=== PATIENT | female | born 1995 | race Caucasian/White ===

== ENCOUNTER 2020-11-03 08:00 | Outpatient (CLI) | payer OTHER ==
[2020-11-03 18:57] LABS: MUDS CUTOFF CONCENTRATIONS CUTOFF CONC BELOW:
[2020-11-03 20:25] LABS: BILIRUBIN,URINE NEGATIVE (NEGATIVE); GLUCOSE, URINE (UA) NEGATIVE (NEGATIVE); KETONES,URINE (UA) NEGATIVE (NEGATIVE); LEUKOCYTE ESTERASE, URINE NEGATIVE (NEGATIVE); NITRITE,URINE NEGATIVE (NEGATIVE); OCCULT BLOOD,URINE NEGATIVE (NEGATIVE); PROTEIN,URINE NEGATIVE (NEGATIVE); UROBILINOGEN,URINE 0.2 (NORMAL) E.U./dL (NORMAL)
[2020-11-03 20:43] LABS: BACTERIA,URINE Moderate /HPF (None Seen); CLARITY,URINE CLOUDY (CLEAR); RBC,URINE 0-5 /HPF (0-5); SQUAMOUS EPITHELIAL CELL,UR MANY Squamous (<= Few); WBC,URINE 0-3 /HPF (0-5)
[2020-11-03 20:44] LABS: AMORPHOUS SEDIMENT,UR Marked /LPF
[2020-11-03 20:50] LABS: AMPHETAMINE SCREEN,URINE NEGATIVE (NEGATIVE); BENZODIAZEPINES SCREEN, URINE NEGATIVE (NEGATIVE); COCAINE SCREEN URINE NEGATIVE (NEGATIVE); METHADONE SCREEN, URINE NEGATIVE (NEGATIVE); METHAMPHETAMINES SCREEN, URINE NEGATIVE (NEGATIVE); OPIATE SCREEN, URINE NEGATIVE (NEGATIVE); THC CANNABINOID SCREEN, URINE NEGATIVE (NEGATIVE); TRICYCLIC ANTIDEPRESSANT,URINE NEGATIVE (NEGATIVE)
[2020-11-03 20:51] LABS: BARBITURATE SCREEN,UR NEGATIVE (NEGATIVE); OXYCODONE SCREEN, URINE NEGATIVE (NEGATIVE); PROPOXYPHENE SCREEN, URINE NEGATIVE (NEGATIVE)
== END 2020-11-03 23:59 | disposition home or self-care (01) ==
LOC: LAB.WC 08:00
PROVIDERS: ATTEND Advanced Practice Midwife
DX: Z34.80 Encounter for supervision of other normal pregnancy, unspecified trimester (principal)
CPT/HCPCS: 80306; 81001; 87086

== ENCOUNTER 2020-11-12 12:32 | Outpatient (CLI) | payer OTHER ==
--- NOTE | 2020-11-12 14:14 | Ultrasound Report ---
PROCEDURE: OB 14+ Weeks INDICATIONS: SUPERVISION OF NORMAL OUTSIDE/PRIOR DATING DATA: Last menstrual period (LMP): 07/12/2020. LMP-based estimated date of delivery (GIOVANY): 04/18/2021. First dating scan (date and location): 11/12/2020. Estimated date of delivery (GIOVANY) from first dating scan: 04/13/2021. The below data below was generated using the ultrasound derived GIOVANY of 04/13/2021 TECHNIQUE: Real-time scanning was performed of the fetus, with image documentation and biometric measurements. Endovaginal scannin indicated COMPARISON: None. FINDINGS: General: A single living intrauterine gestation is present. Presentation: Vertex Placenta: Placental position is anterior, without previa. Amniotic fluid index: 11.8 cm, normal for gestational age. Largest pocket measures 3.75 cm. heart rate: 171 beats per minute. Maternal cervical canal: 5.3 cm long; normal length is 2.5 cm or more. biometrics: Biparietal diameter: 4.2 cm, 18 weeks, 5 days Head circumference: 15.4 cm, 18 weeks 2 days. Abdominal circumference: 12.3 cm, 18 weeks, 0 day Femur length: 2.7 cm, 18 weeks, 1 day Estimated gestational age from initial scan: not applicable. Composite gestational age from present scan: 18 weeks, 2 days Estimated weight and percentile: 2246 g, 78%. Measurement variability for biometric dating: +/- 10 days from 12-20 weeks gestation, +/- 2 weeks fro m 20-30 weeks gestation, +/- 3 weeks for 30 weeks gestation or later. chest, stomach, bilateral kidneys and urinary bladder are visualized and are within normal limi ts. IMPRESSION: 1. Single live intrauterine with fetus in cephalic presentation. heart rate is 171 bp m. EDDIE was 11.8 cm in size which is at approximately 40-50%. 2. Estimated gestational age is 18 weeks, 2 days. Estimated weight is at 78th percentile. Reviewed by: Erwin Solis MD on 11/12/2020 2:13 PM PDT Approved by: Erwin Solis MD on 11/12/2020 2:13 PM PDT Station ID: [id number]
== END 2020-11-12 12:33 | disposition home or self-care (01) ==
LOC: DI 12:32
PROVIDERS: ATTEND Advanced Practice Midwife
DX: Z34.82 Encounter for supervision of other normal pregnancy, second trimester (principal)

== ENCOUNTER 2020-11-30 17:53 | Outpatient (CLI) | payer OTHER ==
--- NOTE | 2020-12-01 12:58 | Ultrasound Report ---
PROCEDURE: OB Detailed Eval INDICATIONS: SUPERVISION OF NORMAL OUTSIDE/PRIOR DATING DATA: Last menstrual period (LMP): 07/12/20. LMP-based estimated date of delivery (GIOVANY): 04/18/21. First dating scan (date and location): 11/12/20. Estimated date of delivery (GIOVANY) from first dating scan: 04/13/21. The below data below was generated using the ultrasound GIOVANY of 04/13/21 TECHNIQUE: Real-time scanning was performed of the fetus, with image documentation and biometric measurements. COMPARISON: OB ultrasound 11/12/20 FINDINGS: General: A single living intrauterine gestation is present. Presentation: Variable Placenta: Placental position is anterior/fundal, without previa. Amniotic fluid index: 15.7 cm, within normal limits for gestational age. Largest pocket 5.6 cm heart rate: 144 beats per minute. Maternal cervical canal: 4.9 cm long; normal length is 2.5 cm or more. biometrics: Biparietal diameter: 5.1 cm 21 weeks 3 days Head circumference: 18.2 cm 20 weeks 5 days Abdominal circumference: 16 cm 21 weeks 1 day Femur length: 3.5 cm 20 weeks 6 days Estimated gestational age from initial scan: 20 weeks 6 days Composite gestational age from present scan: 20 weeks 4 days Estimated weight and percentile: 390 grams 52nd percentile Measurement variability in biometric dating: +/- 10 days from 12-20 weeks gestation, +/- 2 weeks from 20-30 weeks gestation, +/- 3 weeks at 30 weeks gestation or later. Anatomic survey: Neuro: Ventricles are normal at less than 10 mm. Cisterna magna is normal at 3-11 mm. Cerebellum i s normal in size and morphology. Nuchal skin fold: Normal at less than 6 mm between 14 and 20 weeks gestational age. Face: Nose and lips, facial profile are normal. Spine: No evidence for spina bifida. Heart: 4-chambered heart is present, with normal ventricular outflow tracts. Diaphragm: Diaphragm is intact. Stomach: Left-sided stomach is present. Kidneys: No hydronephrosis. Normal is less than 5 mm in 2nd trimester, less than 7 mm in 3rd trimester. Cord: 3 vessel cord has orthotopic insertion. Bladder: Normal in size. Extremities: All 4 extremities are visualized. IMPRESSION: 1. Single live intrauterine with appropriate interval growth. Reviewed by: Della Dejesus MD on 12/01/2020 12:57 PM PDT Approved by: Della Dejesus MD on 12/01/2020 12:57 PM PDT Station ID: [id number]
== END 2020-11-30 17:54 | disposition home or self-care (01) ==
LOC: DI 17:53
PROVIDERS: ATTEND Nurse Practitioner Obstetrics & Gynecology
DX: Z34.80 Encounter for supervision of other normal pregnancy, unspecified trimester (principal); Z36.89 Encounter for other specified antenatal screening

== ENCOUNTER 2020-12-10 09:02 | Outpatient (CLI) | payer OTHER ==
[2020-12-10 09:29] LABS: BASOPHILS % (AUTO) 0.3 %; EOSINOPHILS # (AUTO) 0.1 10^3/uL (0.0-0.7); EOSINOPHILS % (AUTO) 0.7 %; HCT - HEMATOCRIT 34.8 % (37.0-47.0); HGB - HEMOGLOBIN 11.2 g/dL (12.0-16.0); LYMPHOCYTES # (AUTO) 2.2 10^3/uL (1.5-3.5); LYMPHOCYTES % (AUTO) 23.3 %; MEAN CORPUSCULAR HEMOGLOBIN 25.3 pg (27.0-31.0); MEAN CORPUSCULAR HGB CONC 32.2 g/dL (32.0-36.0); MEAN CORPUSCULAR VOLUME 78.7 fL (81.0-99.0); MEAN PLATELET VOLUME 9.8 fL (7.9-10.8); MONOCYTES # (AUTO) 0.7 10^3/uL (0.0-1.0); MONOCYTES % (AUTO) 7.7 %; NEUTROPHILS # (AUTO) 6.4 10^3/uL (1.5-6.6); NEUTROPHILS % (AUTO) 67.7 %; PLT - PLATELET COUNT 230 10^3/uL (130-450); RED BLOOD COUNT 4.42 10^6/uL (4.20-5.40); RED CELL DISTRIBUTION WIDTH 14.6 % (12.0-15.0); WHITE BLOOD COUNT 9.5 x10^3/uL (4.8-10.8)
[2020-12-11 12:33] LABS: HEPATITIS B SURFACE ANTIGEN NON-REACTIVE (NON-REACTIVE); HEPATITIS C ANTIBODY NON-REACTIVE (NON-REACTIVE)
[2020-12-11 15:41] LABS: HIV AG/AB 4TH GEN NON-REACTIVE (NON-REACTIVE)
== END 2020-12-10 09:03 | disposition home or self-care (01) ==
LOC: LAB 09:02
PROVIDERS: ATTEND Radiology Diagnostic Radiology
DX: Z36.89 Encounter for other specified antenatal screening (principal)
CPT/HCPCS: 36415; 85025; 86592; 86762; 86787; 86803; 86850; 86900; 86901; 87340; 87389

== ENCOUNTER 2021-02-12 12:36 | Outpatient (CLI) | payer OTHER ==
[2021-02-12 14:05] LABS: HCT - HEMATOCRIT 31.9 % (37.0-47.0); HGB - HEMOGLOBIN 9.7 g/dL (12.0-16.0); MEAN CORPUSCULAR HEMOGLOBIN 23.6 pg (27.0-31.0); MEAN CORPUSCULAR HGB CONC 30.4 g/dL (32.0-36.0); MEAN CORPUSCULAR VOLUME 77.6 fL (81.0-99.0); MEAN PLATELET VOLUME 9.5 fL (7.9-10.8); RED BLOOD COUNT 4.11 10^6/uL (4.20-5.40); RED CELL DISTRIBUTION WIDTH 15.3 % (12.0-15.0); WHITE BLOOD COUNT 11.5 x10^3/uL (4.8-10.8)
== END 2021-02-12 12:37 | disposition home or self-care (01) ==
LOC: LAB 12:36
PROVIDERS: ATTEND Nurse Practitioner Obstetrics & Gynecology
DX: Z34.80 Encounter for supervision of other normal pregnancy, unspecified trimester (principal); Z36.89 Encounter for other specified antenatal screening
CPT/HCPCS: 36415; 82950; 85027

== ENCOUNTER 2021-02-20 11:21 | Outpatient (CLI) | payer OTHER ==
[2021-02-20 11:46] VITALS: BP 117/70
[2021-02-20 12:06] LABS: BILIRUBIN,URINE NEGATIVE (NEGATIVE); CLARITY,URINE CLEAR (CLEAR); GLUCOSE, URINE (UA) NEGATIVE (NEGATIVE); KETONES,URINE (UA) >=80 mg/dL (NEGATIVE); LEUKOCYTE ESTERASE, URINE NEGATIVE (NEGATIVE); NITRITE,URINE NEGATIVE (NEGATIVE); OCCULT BLOOD,URINE NEGATIVE (NEGATIVE); PROTEIN,URINE TRACE mg/dL (NEGATIVE); UROBILINOGEN,URINE 1 (NORMAL) E.U./dL (NORMAL)
[2021-02-20 12:18] LABS: AMORPHOUS SEDIMENT,UR Few /LPF; BACTERIA,URINE Few /HPF (None Seen); RBC,URINE None Seen /HPF (0-5); SQUAMOUS EPITHELIAL CELL,UR MANY Squamous (<= Few)
[2021-02-20 13:23] LABS: HCT - HEMATOCRIT 32.2 % (37.0-47.0); HGB - HEMOGLOBIN 9.9 g/dL (12.0-16.0); MEAN CORPUSCULAR HEMOGLOBIN 23.2 pg (27.0-31.0); MEAN CORPUSCULAR HGB CONC 30.7 g/dL (32.0-36.0); MEAN CORPUSCULAR VOLUME 75.4 fL (81.0-99.0); MEAN PLATELET VOLUME 9.9 fL (7.9-10.8); RED BLOOD COUNT 4.27 10^6/uL (4.20-5.40); RED CELL DISTRIBUTION WIDTH 15.9 % (12.0-15.0); WHITE BLOOD COUNT 5.2 x10^3/uL (4.8-10.8)
[2021-02-20 13:45] LABS: ALBUMIN 2.9 g/dL (3.2-5.5); ALBUMIN/GLOBULIN RATIO 0.8 (1.0-2.2); ALKALINE PHOSPHATASE 131 IU/L (42-121); ALT ALANINE AMINOTRANSFERASE 27 IU/L (10-60); AST ASPARTATE AMINOTRANSFERASE 31 IU/L (10-42); BILIRUBIN,TOTAL 0.8 mg/dL (0.2-1.0); BUN - BLOOD UREA NITROGEN < 5 mg/dL (6-20); CARBON DIOXIDE - CO2 19 mmol/L (21-32); CHLORIDE 102 mmol/L (101-111); CREATININE 0.7 mg/dL (0.4-1.0); GFR - MDRD 100 (>89); GLUCOSE 88 mg/dL (70-100); POTASSIUM 3.4 mmol/L (3.5-5.0); SODIUM 133 mmol/L (135-145); TOTAL PROTEIN 6.7 g/dL (6.7-8.2)
--- NOTE | 2021-02-20 14:20 | PROVIDER PROGRESS NOTE ---
- HPI Chief Complaint: Pain, non-labor Current : Current EDU 04/18/21 Gestation 31 Weeks and 6 Days 2 Para 1 Vital Signs Temperature 36.7 C 02/20/21 11:43 Heart Rate 117 H 02/20/21 11:43 Respiratory Rate 20 02/20/21 11:43 Blood Pressure 117/70 02/20/21 11:43 O2 Saturation 96 02/20/21 11:43 Temperature 36.7 C 02/20/21 11:43 Heart Rate 117 H 02/20/21 11:43 Respiratory Rate 20 02/20/21 11:43 Blood Pressure 117/70 02/20/21 11:43 O2 Saturation 96 02/20/21 11:43 - Procedures OB Procedure Performed: NST Diagnosis/Indication for NST: labor - Plan Plan: Pt evaluated face to face Lillian presents to [facility] with c/o abdominal pain. She states the pain has been present x 3 days but most severely since yesterday. She reports it is located in her right lower back and then wraps around the front across to her upper right abdomen and her rib cage. She rates the pain 8/10 on a pain scale. She is concerned that the pain seems to come and go with some consistency and is worried she may be having labor contractions. In addition she is experiencing constant nausea, has had a runny nose and congestion x 5 days and had an elevated temperature of 100 degrees yesterday. She has also been experiencing shortness of breath today. She denies vaginal bleeding or leakage of fluid and reports +FM. She has had normal bowel movements but states she has not eaten anything for the past couple of days. She states she does not want a COVID-19 swab today because she does not believe covid is as bad as everyone is making it out to be. She states her would be very upset with her if she were to get a swab today. We discussed the importance of knowing what is causing her symptoms and reviewed delay in life saving treatments if we do not know she has COVID. We also discussed the importance of quarantine to protect her family and her community members. O: NST performed 02/20/2021 NST read 02/20/2021 NST reactive. FHR baseline 150s, moderate variability, + accels, no decels No contractions appreciated via tocometry Vitals: BP 117/70, T 36.7, HR 117, RR 20; O2 98 Normocephalic, atraumatic, heart RRR w/o M/G/R, lungs CTAB, abdomen gravid, soft, and tender in RUQ w/o rebound pain. Bilateral LE's trace edema. Labs: Hgb 9.9; Hct 32.2 PLT 171 AST 31; ALT 27 Cr 0.7 Na 133; K 3.4 UA negative with exception of >=80 Ketones (H) Complete abdominal ultrasound: Comprehensive report pending; preliminary report WNL. Some mild sludge to gall bladder however no blockage or stone visualized. Pt refused COVID-19 swab/testing course: LMP: 07/12/2020 GIOVANY by LMP:04/18/2021 Initial U/S: @ 18.2wks c/w LMP dating (GIOVANY 04/13/2021) FINAL GIOVANY: 04/18/2021 A pos/Rubella non immune VZV: non immune Genetic testing: declines FAS: WNL. Anterior, fundal placenta, no previa. 3VC. Size c/w dating. EFW 52%tile. Glucola impaired (174); 3 hour GTT pending as pt has not yet completed Influenza: delinced TDAP: declined COVID- declined HSV: denies in self and partner Breast pump Rx provided MOD: Anticipate ; type and cross for 2 units secondary to hx of pp hemorrhage and retained placenta; Ramirez, daughter Baldev (16mo); epidural; pp contraception: pap: collected 12/10/2020 Assessment: 25yo @ 31.6wks gestation by LMP c/w 18.2wk U/S Abdominal pain, RUQ Rhinorrhea Shortness of breath FHR Category I Plan: Encouraged her to obtain a pulse oximeter and present immediately if her O2 drops below 93%. Reviewed warning s/sx and when to present urgently/emergently. Advised quarantine x 14 days. Encouraged her to increase her fluid intake and rest. Pt has emergency contact number. Pt verbalized understanding and agrees to above plan. She denies further questions or concerns at this time. FINAL DIAGNOSIS: Abdominal pain, RUQ Rhinorrhea Shortness of breath
--- NOTE | 2021-02-20 15:19 | Ultrasound Report ---
PROCEDURE: Abdomen Complete INDICATIONS: right upper quadrant abdominal pain TECHNIQUE: Real-time scanning was performed of the abdominal and retroperitoneal organs, with image documentatio n. COMPARISON: None. FINDINGS: Liver: Liver is normal in size and homogeneous in echotexture. Gallbladder: Pulmonary demonstrates sludge. There is a nonmobile focus of increased echogenicity alla uring 4 x 3 x 5 mm. Wall thickness is within normal limits measuring 1.4 mm. Biliary ducts: Intrahepatic bile ducts are non-dilated. Extrahepatic bile duct caliber measures 4.8 mm. Normal is 6-7 mm or less in diameter, or 10 mm or less post-cholecystectomy. Pancreas: Visualized portions of the pancreas are sonographically normal. Spleen: Spleen is normal in size and homogeneous in echotexture. Kidneys: Kidneys are normal in size and echotexture. Right kidney measures 11.8 cm long; left kidne y measures 11.7 cm long. No hydronephrosis or nephrolithiasis. No solid masses. Aorta: Visualized aorta is normal in caliber at less than 3 cm. Iliacs: Proximal common iliac arteries are not visualized. IVC: Intrahepatic inferior vena cava is patent. Miscellaneous: No free abdominal fluid. Intrauterine is identified with heart rate of 187 bpm. IMPRESSION: 1. Gallbladder sludge with adherent stone versus polyp as above. No gallbladder wall thickening. 2. Single live intrauterine . Reviewed by: Della Dejesus MD on 02/20/2021 3:17 PM PDT Approved by: Della Dejesus MD on 02/20/2021 3:17 PM PDT Station ID: [id number]
== END 2021-02-20 15:36 | disposition home or self-care (01) ==
LOC: WFO 11:21 → FBP 11:24 → WFO 15:36
PROVIDERS: ATTEND Nurse Practitioner Obstetrics & Gynecology
DX: O99.891 Other specified diseases and conditions complicating pregnancy (principal); R10.11 Right upper quadrant pain; J34.89 Other specified disorders of nose and nasal sinuses; R06.02 Shortness of breath; Z3A.31 31 weeks gestation of pregnancy; Z53.29 Procedure and treatment not carried out because of patient's decision for other reasons
CPT/HCPCS: 36415; 80053; 81001; 85027; 87086; 99213; 99215

== ENCOUNTER 2021-03-22 19:48 | Outpatient (CLI) | payer OTHER ==
--- NOTE | 2021-03-22 21:24 | Ultrasound Report ---
PROCEDURE: OB F/U or Repeat INDICATIONS: UTERINE SIZE-DATE DISCREPANCY OUTSIDE/PRIOR DATING DATA: Last menstrual period (LMP): 07/12/2020. LMP-based estimated date of delivery (GIOVANY): 04/18/2021. First dating scan (date and location): 11/12/2020. Estimated date of delivery (GIOVANY) from first dating scan: 04/13/2021. The below data below was generated using the ultrasound GIOVANY of 04/13/2021 TECHNIQUE: Real-time scanning was performed of the fetus, with image documentation and biometric measurements. COMPARISON: OB ultrasound 11/30/2020, 11/12/2020, ultrasound abdomen 02/20/2021 FINDINGS: General: A single living intrauterine gestation is present. Presentation: Vertex Placenta: Placental position is anterior, without previa. Amniotic fluid index: 25.2 cm, within normal limits for gestational age. Largest pocket 10.1 cm heart rate: 153 beats per minute. Maternal cervical canal: 4.0 cm long; normal length is 2.5 cm or more. biometrics: Biparietal diameter: 9.4 cm 38 weeks 2 days Head circumference: 33.5 cm 38 weeks 3 days Abdominal circumference: 33.5 cm 37 weeks 3 days Femur length: 6.9 cm 35 weeks 2 days Estimated gestational age from initial scan: 36 weeks 6 days Composite gestational age from present scan: 37 weeks 3 days Estimated weight and percentile: 3113 g 62nd percentile Measurement variability in biometric dating: +/- 10 days from 12-20 weeks gestation, +/- 2 weeks from 20-30 weeks gestation, +/- 3 weeks at 30 weeks gestation or more. Other: Not applicable. IMPRESSION: 1. Single live intrauterine . 2. EDDIE and weight are within normal limits. Reviewed by: Della Dejesus MD on 03/22/2021 9:23 PM PDT Approved by: Della Dejesus MD on 03/22/2021 9:23 PM PDT Station ID: [id number]
== END 2021-03-22 19:49 | disposition home or self-care (01) ==
LOC: DI 19:48
PROVIDERS: ATTEND Nurse Practitioner Obstetrics & Gynecology
DX: O26.843 Uterine size-date discrepancy, third trimester (principal); Z3A.37 37 weeks gestation of pregnancy

== ENCOUNTER 2021-04-01 07:00 | Outpatient (CLI) | payer OTHER | END 2021-04-01 23:59 | disposition home or self-care (01) | LOC: LAB 07:00 | PROVIDERS: ATTEND Nurse Practitioner Obstetrics & Gynecology | DX: Z36.85 Encounter for antenatal screening for Streptococcus B (principal) | CPT/HCPCS: 87797 ==

== ENCOUNTER 2021-04-01 10:26 | Outpatient (CLI) | payer OTHER ==
[2021-04-01 10:49] VITALS: BP 107/74
--- NOTE | 2021-04-01 12:16 | PROCEDURE REPORT ---
- HPI Diagnosis/Indication for NST: Polyhydramnios Current EDU 04/19/21 Gestation 37 Weeks and 3 Days 2 Para 1 Vital Signs Temperature 37 C 04/01/21 10:42 Heart Rate 125 H 04/01/21 10:42 Respiratory Rate 18 04/01/21 10:42 Blood Pressure 107/74 04/01/21 10:42 Temperature 37 C 04/01/21 10:54 Heart Rate 125 H 04/01/21 10:54 Respiratory Rate 18 04/01/21 10:54 Blood Pressure 107/74 04/01/21 10:54 O2 Saturation 100 04/01/21 10:54 - NST Procedure NST Procedure Start Date 04/01/21 Start Time 10:41 Vibroacoustic Stimulation Used No Patient States Movement Yes - Results and Plan Plan: Lillian presents to [facility] for NST and BPP with EDDIE secondary to polyhydramnios. She denies questions or concerns today. NST performed 04/01/2021 NST read 04/01/2021 NST reactive. FHR baseline 150s, moderate variability, + accels, no decels No contractions appreciated via tocometry BPP 01/25 EDDIE 15.0 with largest pocket 6.8cm Assessment: 25yo @ 37.5wks gestation Polyhydramnios FHR Category I Plan: Continue routine care with once weekly BPP w/ EDDIE (scheduled next week 04/07) IOL at 39.2wks gestation Pt verbalized understanding and denies further questions or concerns at this time. FINAL DIAGNOSIS: Polyhydramnios complicating
--- NOTE | 2021-04-01 12:28 | Ultrasound Report ---
PROCEDURE: OB Biophysical Profile INDICATIONS: polyhydramnios OUTSIDE/PRIOR DATING DATA: Last menstrual period (LMP): 07/12/2020. LMP-based estimated date of delivery (GIOVANY): 04/18/2021. First dating scan (date and location): 11/12/2020. Estimated date of delivery (GIOVANY) from first dating scan: 04/13/2021. The below data below was generated using the prior study generated GIOVANY of 04/13/2021 TECHNIQUE: Real-time scanning was performed of the fetus, with image documentation and biometric funmilayo surements. Biophysical profile was also obtained. COMPARISON: 03/22/2021, 02/20/2021, 11/30/2020, 11/12/2020. FINDINGS: General: A single living intrauterine gestation is present. Presentation: Vertex Placenta: Placental position is anterior, without previa. Amniotic fluid index: 15.0 cm, which is within normal limits for gestational age. heart rate: 158 beats per minute. Maternal cervical canal: 3.9 cm long; normal length is 2.5 cm or more. biometrics: Biparietal diameter: 9.6 cm, 39 weeks, 1 day. Head circumference: 34.8 cm, 40 weeks, 3 days. Abdominal circumference: 36.05 cm, 30 weeks, 0 day. Femur length: 7.35 cm, 37 weeks, 4 days. Estimated gestational age from initial scan: 38 weeks, 2 days. Composite gestational age from present scan: 39 weeks, 2 days. Estimated weight and percentile: 3785.1 g, 88%. Measurement variability in biometric dating: +/- 10 days from 12-20 weeks gestation, +/- 2 weeks from 20-30 weeks gestation, +/- 3 weeks at 30 weeks gestation or later. Biophysical profile: Tone: 2 points. Movement: 2 points. Respiration: 2 points. Largest pocket of fluid: 2 points. Umbilical artery Doppler: Abdomen, 2.44, mid, 2.09, placenta, 2.20. IMPRESSION: 1. Single live intrauterine with fetus in vertex presentation. heart rate is 158 bpm. Estimated gestational age based on current study is 39 weeks, 2 days. Estimated weight is 3785 g and is at 88%. 2. EDDIE measures 15.0 cm which is within normal limits. Largest pocket measures 6.77 cm. 3. biophysical profile score is 8 out of 8. 4. Normal umbilical artery S/D ratio as above. Reviewed by: Erwin Solis MD on 04/01/2021 12:27 PM PDT Approved by: Erwin Solis MD on 04/01/2021 12:27 PM PDT Station ID: [id number]
== END 2021-04-01 12:10 | disposition home or self-care (01) ==
LOC: WFO 10:26 → FBP 10:30 → WFO 12:10
PROVIDERS: ATTEND Nurse Practitioner Obstetrics & Gynecology
DX: O40.3XX0 Polyhydramnios, third trimester, not applicable or unspecified (principal); Z36.85 Encounter for antenatal screening for Streptococcus B; Z3A.37 37 weeks gestation of pregnancy
CPT/HCPCS: 59025; 87797; 99213

== ENCOUNTER 2021-04-03 00:13 | Outpatient (CLI) | payer OTHER ==
[2021-04-03 00:50] VITALS: BP 110/78
--- NOTE | 2021-04-03 13:21 | PROVIDER PROGRESS NOTE ---
- HPI Chief Complaint: Decreased movement Current : Current EDU 04/18/21 Gestation 37 Weeks and 6 Days 2 Para 1 Vital Signs Temperature 37.2 C 04/03/21 00:17 Heart Rate 96 04/03/21 00:17 Respiratory Rate 18 04/03/21 00:17 Blood Pressure 110/78 04/03/21 00:17 Temperature 37.2 C 04/03/21 00:19 Heart Rate 108 H 04/03/21 00:19 Respiratory Rate 20 04/03/21 00:19 Blood Pressure 110/78 04/03/21 00:19 O2 Saturation - Procedures OB Procedure Performed: NST Diagnosis/Indication for NST: Decreased movement NST Procedure: NST Procedure Start Date 04/03/21 Start Time 00:25 Stop Time 01:00 Vibroacoustic Stimulation Used No Patient States Movement Yes: Has felt FM >15 FMs in 20min - Plan Plan: Lillian presents to [facility] for decreased movement throughout the day today. She denies vaginal bleeding, leakage of fluid or contractions. Upon arrival she states she did begin to feel her baby move and is feeling much better now. NST performed 04/03/2021 NST read 04/03/2021 FHR baseline 150s, moderate variability, + accels, no decels No contractions appreciated via tocometry Assessment: 25yo [id number] @ 37.6wks gestation decreased movement Plan: Pt released home with precautions and reports feeling reassured. Continue routine care. FINAL DIAGNOSIS: Decreased movement, third trimester
== END 2021-04-03 01:30 | disposition home or self-care (01) ==
LOC: WFO 00:13 → FBP 00:14 → WFO 01:30
PROVIDERS: ATTEND Nurse Practitioner Obstetrics & Gynecology
DX: O36.8130 Decreased fetal movements, third trimester, not applicable or unspecified (principal); Z3A.37 37 weeks gestation of pregnancy
CPT/HCPCS: 59025; 99213

== ENCOUNTER 2021-04-07 10:47 | Outpatient (CLI) | payer OTHER ==
[2021-04-07 11:01] VITALS: BP 122/82
--- NOTE | 2021-04-07 13:11 | Ultrasound Report ---
PROCEDURE: OB Biophysical Profile INDICATIONS: Polyhydramnios OUTSIDE/PRIOR DATING DATA: Last menstrual period (LMP): 07/12/2020. LMP-based estimated date of delivery (GIOVANY): 04/18/2021. First dating scan (date and location): 11/12/2020. [place]. Estimated date of delivery (GIOVANY) from first dating scan: 04/13/2021. The below data below was generated using the ultrasound GIOVANY of 04/13/2021 TECHNIQUE: Real-time scanning was performed of the fetus, with image documentation and biometric funmilayo surements. Biophysical profile was also obtained. COMPARISON: None. FINDINGS: General: A single living intrauterine gestation is present. Presentation: Vertex Placenta: Placental position is anterior, without previa. Amniotic fluid index: 16.1 cm, normal for gestational age. heart rate: 148 beats per minute. Maternal cervical canal: Not well seen. Estimated gestational age from initial scan: 39 weeks 1 day. Biophysical profile: Tone: 2 points. Movement: 2 points. Respiration: 2 points. Largest pocket of fluid: 2 points. 6.6 cm. Cord SD ratio: Abdomen 1.79, mid 1.77, placenta 1.70 anatomy: Limited evaluation demonstrates normal chest/diaphragm, stomach/abdomen, bilateral staci al regions and urinary bladder/pelvis. IMPRESSION: 1. Biophysical profile score 8/8 2. EDDIE 16.1 cm. 3. SD ratios within normal limits. Reviewed by: Alin Mandel on 04/07/2021 1:10 PM PDT Approved by: Alin Mandel on 04/07/2021 1:10 PM PDT Station ID: [id number]
--- NOTE | 2021-04-07 13:40 | PROCEDURE REPORT ---
- HPI Diagnosis/Indication for NST: Other Current EDU 04/18/21 Gestation 38 Weeks and 3 Days 2 Para 1 Vital Signs Temperature 36.8 C 04/07/21 10:59 Heart Rate 102 H 04/07/21 10:59 Respiratory Rate 18 04/07/21 10:59 Blood Pressure 122/82 H 04/07/21 10:59 O2 Saturation 100 04/07/21 10:59 Temperature 36.8 C 04/07/21 11:02 Heart Rate 102 H 04/07/21 10:59 Respiratory Rate 18 04/07/21 10:59 Blood Pressure 122/82 H 04/07/21 10:59 O2 Saturation 100 04/07/21 10:59 - NST Procedure NST Procedure Start Date 04/07/21 Start Time 11:00 Stop Time 11:25 Vibroacoustic Stimulation Used No Patient States Movement Yes - Results and Plan Plan: Lillian presents to [facility] for scheduled NST, BPP and EDDIE secondary to polyhydramnios. NST performed 04/07/2021 NST read 04/07/2021 FHR baseline 140, moderate variability, + accels, no decels No contractions appreciated via tocometry BPP 8/8 Pt released home with precautions. FINAL DIAGNOSIS: Polyhydramnios, third trimester
== END 2021-04-07 12:20 | disposition home or self-care (01) ==
LOC: WFO 10:47 → FBP 10:51 → WFO 12:20
PROVIDERS: ATTEND Nurse Practitioner Obstetrics & Gynecology
DX: O40.3XX0 Polyhydramnios, third trimester, not applicable or unspecified (principal); Z3A.38 38 weeks gestation of pregnancy
CPT/HCPCS: 59025

== ENCOUNTER 2021-04-13 07:30 | Inpatient (IN) | payer OTHER ==
[2021-04-13] MEDS ORDERED: OXYTOCIN 10 UNIT/ML VIAL IM PRN (08:18)
[2021-04-13] MEDS ORDERED: CARBOPROST TROMETHAMINE 250 MCG/ML AMP IM PRN (08:18)
[2021-04-13] MEDS ORDERED: OXYTOCIN/SODIUM CHLORIDE 500 ML IV PRN (08:18)
[2021-04-13] MEDS ORDERED: LIDOCAINE-MPF 1% 30 ML VIAL ID PRN (08:18)
[2021-04-13] MEDS ORDERED: SODIUM CHLORIDE FLUSH 0.9% 10 ML SYRINGE IVP PRN (08:18)
[2021-04-13] MEDS ORDERED: miSOPROStoL 200 MCG TABLET BC PRN (08:18)
[2021-04-13] MEDS ORDERED: ONDANSETRON 4 MG/2 ML VIAL IVP PRN ×2 (08:18→20:44)
[2021-04-13] MEDS ORDERED: METHYLERGONOVINE 0.2 MG/ML VIAL IM PRN (08:18)
[2021-04-13] MEDS ORDERED: TRANEXAMIC ACID IN NACL 1,000 MG/100 ML BAG IV PRN (08:18)
[2021-04-13 08:59] LABS: BASOPHILS % (AUTO) 0.3 %; EOSINOPHILS % (AUTO) 0.2 %; HCT - HEMATOCRIT 30.7 % (37.0-47.0); HGB - HEMOGLOBIN 9.3 g/dL (12.0-16.0); LYMPHOCYTES # (AUTO) 2.1 10^3/uL (1.5-3.5); LYMPHOCYTES % (AUTO) 23.6 %; MEAN CORPUSCULAR HEMOGLOBIN 22.7 pg (27.0-31.0); MEAN CORPUSCULAR HGB CONC 30.3 g/dL (32.0-36.0); MEAN CORPUSCULAR VOLUME 74.9 fL (81.0-99.0); MONOCYTES # (AUTO) 0.5 10^3/uL (0.0-1.0); MONOCYTES % (AUTO) 5.2 %; NEUTROPHILS # (AUTO) 6.4 10^3/uL (1.5-6.6); NEUTROPHILS % (AUTO) 70.5 %; PLT - PLATELET COUNT 253 10^3/uL (130-450); RED CELL DISTRIBUTION WIDTH 17.3 % (12.0-15.0)
[2021-04-13] MEDS: miSOPROStoL 100 MCG TABLET BC SCH ×4 (09:10→18:56)
--- NOTE | 2021-04-13 15:12 | PROVIDER PROGRESS NOTE ---
Labor Progress Note - Uterine Monitoring Uterine Monitoring Mode: positive: External toco Contraction Frequency (min/apart): 2-6 Contraction Intensity: positive: Moderate Uterine Resting Tone: positive: Soft - Monitoring Monitor Mode: positive: External ultrasound Heart Rate Baseline: 140 Heart Rate Variability: positive: Moderate (6-25 bmp) Accelerations: positive: Present, 15x15 Decelerations: positive: None Strip Review: positive: Category I - Vaginal Exam Dilation (in cm): 3-4 Effacement (%): 50 Station: -2 Cervical Position: Midposition - Labor Progress Note Labor Progress Note/Additional Text: S: Breathing through contractions. States she is definitely feeling increased pressure with contractions and is noting a change for sure. She feels she is coping well at this time. supportive at the bedside. O: AROM moderate amount of clear fluid at 1458 A: 25yo @ 39.2wks gestation by LMP c/w 18.2wk U/S Polyhydramnios - mild (initially 25 with repeat EDDIE 15) Impaired GTT in - 1 hr 164; 3 hr GTT declined; declined BG monitoring GBS neg P: Continuous monitoring D/c misoprostol now - Expectant management x 4 hours. Consider pitocin for labor augmentation in 4 hours PRN. Encouraged ambulation and position changes. Nitrous oxide PRN. Jacuzzi PRN. Epidural per maternal request. Anticipate . Pt verbalized understanding and agrees to above plan. She denies further questions or concerns at this time.
--- NOTE | 2021-04-13 15:14 | HISTORY & PHYSICAL EXAMINATION ---
Admit History - Visit Reason Visit Reason: Other - : 2 Parity: 1 Premature: 0 Ectopic: 0 : 0 Care: positive: [facility] Risk/History: positive: Other Complications This : positive: Other Smoking Status: Never smoker - Mother's Labs Mother's Blood Type: positive: A Mother's RH: positive: Positive GBS: positive: Group B Step Negative Rubella Status: positive: Immune Meds/Allgy - Allergies Allergies/Adverse Reactions: Allergies Allergy/AdvReac Type Severity Reaction Status Date / Time azithromycin Allergy Rash Verified 04/13/21 09:56 naproxen Allergy Unknown Verified 04/13/21 09:56 Review of Systems - Constitutional Constitutional: denies: Fatigue, Fever, Chills - Eyes Eyes: denies: Blurred vision, Spots in vision, Dipolpia - Cardiovascular Cariovascular: denies: Irregular heart rate, Palpitations, Chest pain - Respiratory Respiratory: denies: Cough, Wheezing, SOB at rest - Gastrointestinal Gastrointestinal: denies: Nausea, Vomiting - Integumentary Integumentary: denies: Rash, Pruritis - Neurological Neurological: denies: Headache Physical - Abdominal Exam Vital Signs: Temp Pulse Resp BP Pulse Ox 36.5 C 04/13/21 08:55 Contraction Frequency (min/apart): intermittent/occasional Contraction Intensity: positive: Mild Uterine Resting Tone: positive: Soft - Monitoring Heart Rate Baseline: 140 Strip Review: positive: Category I - Presentation Presentation: positive: Vertex - Vaginal Exam Membranes: positive: Membranes intact - Speculum Exam Speculum Exam Performed: positive: No Plan for Labor - Plan For Labor I expect patient to be DC'd or transferred within 96 hours.: Yes Plan for Labor: Lillian presents today to [facility] for medical induction of labor secondary to polyhydramnios and unknown gestational diabetes secondary to impaired 1 hour GTT. She denies vaginal bleeding, leakage of fluid, or contractions. She reports +FM. She denies KNUTSON or visual disturbances. She has been a patient of [facility] for the duration of her however she was late to seek care with her initial visit at 17.2wks gestation. Her has been complicated by recent diagnosis of polyhydramnios and an impaired 1 hour GTT. She declined the 3 hour GTT and declined BG monitoring. She has a hx which is significant for retained placenta which required manual extraction and a hemorrhage with a 2 liter blood loss. She will be admitted for medical induction of labor. Dating criteria: LMP 07/12/2020 Initial U/S @ 18.2wks gestation c/w LMP dating. Serial exams - agree OB Hx: G1: 06/26/2019 @ 41wks gestation. Female, 8lb 3oz; complicated by mainual removal of placenta and pp hemorrhage with 2 liter blood loss G2: Current Medications: PNV; Allergies: Azithromycin (Severe); Naproxen (Severe) PMHx: Anemia; anxiety Surgical Hx: none Social Hx: never smoker. No ETOH or IVDA. Ramirez - septic pump truck driver. Lives in [place] in her parent's rental house - good family support. 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 Family Hx: Arthritis- MGM; Throat cancer - MGF; Aortic aneurysm - MGF (Caused ); Paternal family hx is unknown course: Problems: Polyhydramnios: Once weekly BPP with EDDIE initiated with IOL 39.0-40.0wks Hx pp hemorrhage - type and cross x 2 units on admit Obesity - BMI 41 (pre-, current 42.5) LMP: 07/12/2020 GIOVANY by LMP:04/18/2021 Initial U/S: @ 18.2wks c/w LMP dating (GIOVANY 04/13/2021) FINAL GIOVANY: 04/18/2021 A pos/Rubella non immune VZV: non immune Genetic testing: declines FAS: WNL. Anterior, fundal placenta, no previa. 3VC. Size c/w dating. EFW 52%tile. Glucola-164 3hr ordered- declined Influenza: declined TDAP: declined COVID- declined GBS @ 37.4wks-NEGATIVE HSV: denies in self and partner Breast pump Rx provided MOD: Anticipate ; type and cross for 2 units secondary to hx of pp hemorrhage and retained placenta; Ramirez, daughter Baldev (16mo); desires epidural; pp contraception: pap: 12/10/20 NEGATIVE/ GCCT NEG due 2023 Physical Exam: Normocephalic, atraumtic Heart RRR w/o M/G/R Lungs CTAB Abdomen gravid, soft, nontender FHR baseline 135, moderate variabiliy, + accels, no decels No contractions appreciated via tocometry SVE deferred Bilateral LE's trace edema Mood is good Assessment: 25yo @ 39.2wks gestation by LMP c/w 18wk U/S Polyhydramnios Impaired 1hr gtt - 3 hr GTT declined Obesity Hx pp hemorrhage GBS neg FHR Category I Plan: Admit for medical IOL secondary to polyhydramnios with pre-induction cervical ripening with misoprostol Continuous monitoring Jacuzzi PRN. Nitrous oxide PRN. Epidural per maternal request. Anticipate .
--- NOTE | 2021-04-13 16:18 | ANESTHESIA ---
Pre-Anesthesia VS, & Labs - Diagnosis term labor induction, IUP - Procedure epidural placement for Vital Signs: Temp Pulse Resp BP Pulse Ox 36.5 C 04/13/21 08:55 Height: 5 ft 5 in Weight (kg): 118.115 kg Body Mass Index: 43.3 BMI Classification: Morbidly Obese - NPO Last Fluid Intake: t/o day Last Food Intake: lunch - Is Patient ?: Yes - Lab Results Current Lab Results: Laboratory Tests 04/13/21 08:35: Blood Type A POSITIVE, Antibody Screen NEGATIVE, Crossmatch IS Only See Detail 04/13/21 08:35: WBC 9.0, RBC 4.10 L, Hgb 9.3 L, Hct 30.7 L, MCV 74.9 L, MCH 22.7 L, MCHC 30.3 L, RDW 17.3 H, Plt Count 253, MPV 10.0, Neut # (Auto) 6.4, Lymph # (Auto) 2.1, [place] # (Auto) 0.5, Eos # (Auto) 0.0, Baso # (Auto) 0.0, Absolute Nucleated RBC 0.00, Nucleated RBC % 0.0 Lab results reviewed: Yes Fish Bones: 04/13/21 08:35 Home Medications and Allergies Active Medications Carboprost Tromethamine (Carboprost Tromethamine 250 Mcg/Ml Amp) 250 mcg IM Q15M PRN PRN Reason: Step 4: Hemorrhage protocol Stop: 04/18/21 08:18 Oxytocin/Sodium Chloride (Pitocin/Sodium Chloride) 500 mls @ 999 mls/hr IV PRN PRN; Protocol PRN Reason: POST- HEMORR PREVENTION Stop: 04/18/21 08:18 Tranexamic Acid (Tranexamic 1,000 Mg/100ml-Nacl) 1,000 mg in 100 mls @ 600 mls/hr IV .ONCE PRN PRN Reason: EBL >1200mL and within 3hr Stop: 04/18/21 08:18 Lactated Ringer's (Lr) 1,000 mls @ 100 mls/hr IV .Q10H ISABELLA Lidocaine HCl (Lidocaine-Mpf 1% 30 Ml Vial) 30 ml ID .ONCE PRN PRN Reason: PERINEAL REPAIR Stop: 04/18/21 08:18 Methylergonovine Maleate (Methylergonovine 0.2 Mg/Ml Vial) 0.2 mg IM .ONCE PRN PRN Reason: Step 2: Hemorrhage protocol Stop: 04/18/21 08:18 Misoprostol (Misoprostol 200 Mcg Tablet) 800 mcg BC .ONCE PRN PRN Reason: Step 3: Hemorrhage protocol Stop: 04/18/21 08:18 Misoprostol (Misoprostol 100 Mcg Tablet) 50 mcg BC Q4HR ISABELLA Last Admin: 04/13/21 09:10 Dose: 50 mcg Documented by: Ondansetron HCl (Ondansetron 4 Mg/2 Ml Vial) 4 mg IVP Q4HR PRN PRN Reason: Nausea / Vomiting Oxytocin (Oxytocin 10 Unit/Ml Vial) 10 unit IM .ONCE PRN PRN Reason: Step one: If no IV access Stop: 04/18/21 08:18 Sodium Chloride (Sodium Chloride Flush 0.9% 10 Ml Syringe) 10 ml IVP 0100,0900,1700 ISABELLA Sodium Chloride (Sodium Chloride Flush 0.9% 10 Ml Syringe) 10 ml IVP PRN PRN PRN Reason: NEEDED PER PROVIDER ORDERS Allergies/Adverse Reactions: Allergies Allergy/AdvReac Type Severity Reaction Status Date / Time azithromycin Allergy Rash Verified 04/13/21 09:56 naproxen Allergy Unknown Verified 04/13/21 09:56 Anes History & Medical History - Anesthetic History Anesthesia Complications: reports: No previous complications Family history of Anesthesia Complications: Denies Family history of Malignant Hyperthermia: Denies - Medical History Cardiovascular: reports: Hypertension Smoking Status: Never smoker - Obstetrical History : 2 Parity: 1 Events: reports: Other Complications: reports: Other Exam General: Alert, Oriented x3, Cooperative Dental: WNL Mouth Openin Fingerbreadth Neck Mobility: Normal Mallampati classification: II Respiratory: No respiratory distress Cardiovascular: Regular rate Neurological: Normal speech Mental/Cognitive Status: Alert/Oriented X3, Normal for patient Cognitive Status: Within normal limits Plan Anesthesia Type: Epidural Consent for Procedure(s) Verified and Reviewed: Yes Code Status: Attempt Resuscitation ASA classification: 2-Mild systemic disease Is this case an emergency?: No
[2021-04-13] MEDS: LACTATED RINGERS 1,000 ML IV SCH ×3 (16:49→22:06)
[2021-04-13] MEDS: SODIUM CHLORIDE FLUSH 0.9% 10 ML SYRINGE IVP SCH ×2 (16:50→18:56)
[2021-04-13] MEDS ORDERED: ROPIVACAINE 0.2% 200 MG/100 ML BAG EP ONE (20:13)
[2021-04-13] MEDS ORDERED: METOCLOPRAMIDE 10 MG/2 ML VIAL IVP PRN (20:44)
[2021-04-13] MEDS ORDERED: diphenhydrAMINE INJ 50 MG/ML VIAL IVP PRN (20:44)
[2021-04-13] MEDS ORDERED: NALBUPHINE 10 MG/ML AMP IVP PRN (20:44)
[2021-04-13] MEDS ORDERED: ePHEDrine 50 MG/ML VIAL IVP PRN (20:44)
[2021-04-13] MEDS ORDERED: ROPIVACAINE 0.2% 200 MG/100 ML BAG EP PRN (20:44)
[2021-04-13] MEDS ORDERED: NALOXONE 0.4 MG/ML VIAL IVP PRN (20:44)
[2021-04-13] MEDS ORDERED: OXYTOCIN/SODIUM CHLORIDE 500 ML IV SCH (21:00)
--- NOTE | 2021-04-13 22:39 | CONSULTATION NOTE ---
Consultation Report: Called for pt c/o nausea after epidural bolus and "feeling too numb". RN had sat pt up and stopped epidural pump prior to calling. Pt sitting in high fowlers upon arrival. VSS. B UE with full sensation without numbness. Sensory level assessed at T6. Epidural rate moved down from 10cc/[id number] with 2cc continuous to 8cc/[id number]. Pump also delayed an additional 30 mins for next bolus. All changes discussed with RN and patient. Pt made aware that next bolus would occur around 11PM.
[2021-04-14] MEDS ORDERED: HYDROCORTISONE 1% CREAM 28 GM TUBE PR PRN (01:50)
[2021-04-14] MEDS ORDERED: WITCH HAZEL/GLYCERIN 1 PAD TOP PRN (01:50)
--- NOTE | 2021-04-14 02:04 | DELIVERY NOTE ---
Delivery Note - Labor Labor: positive: Induced by ARM - Infant Delivery Method Delivery Method: positive: Spontaneous vaginal delivery - Cervical Ripening Method Cervical Ripening Method: positive: Misoprostil - Presentation Presentation: positive: Vertex, GONZÁLEZ - left occiput anterior - Nuchal Cord Nuchal Cord: positive: Present, Reduced - Amniotic Fluid Description Amniotic Fluid Description: positive: Light meconium - Episiotomy Type Episiotomy Type: positive: None - Laceration Laceration: positive: None - Delivery Outcome Delivery Outcome: positive: Livebirth - Merrick : positive: Placed in direct skin contact with mother, Stimulated, Warmed, Jesse used Merrick sex: positive: Male - Cord Cord: positive: 3 vessels - Placenta Placenta: positive: Intact, Spontaneous - Estimated Blood Loss Estimated Blood Loss (in cc): 250 - Post Delivery Events Post Delivery Events: positive: No post delivery events - Delivery Comments (Free Text/Narrative) Delivery Comments (Free Text/Narrative): Labor: This 25yo @ 39.3wks gestation by LMP c/w 18wk U/S presented on 04/13/2021 for medical induction of labor secondary to polyhydramnios and impaired 1 hour GTT with declination of 3 hour GTT and no blood glucose monitoring. She was given 1 dose of 50mcg BC misoprostol for pre-induction cervical ripening. AROM occurred at 1458 and was noted to be a moderate amount of amniotic fluid with light meconium. She was augmented with pitocin for a maximum infusion rate of 6 mU/mL. She progressed to c/c/+1 at 0129. : Normal of viable male on 04/14/2021 @ 0133. Nuchal cord x 2 easily reduced. The was placed on maternal abdomen, stimulated, dried, and placed skin to skin. scallop cutter computerized machine fabric cutter present at the bedside for delivery secondary to light meconium. 's were 8/9 at 1 and 5 minutes respectively. Pitocin administered via IV for hemostasis. The umbilical cord was allowed to pulsate x 2 minutes at which time it was doubly clamped by CNM and cut by patient. 3VC. Cord blood was obtained. Fundal massage and gentle cord traction applied for active management of the third stage. Placenta delivered spontaneously and intact at 0137. EBL 200mL. Fourth stage: Uterine fundus firm and there is no excessive bleeding. The perineum, vagina, and cervix were inspected and noted to be intact. Skin to skin contact initiated. Family bonding well. Both mother and baby were left in stable condition.
[2021-04-14] MEDS: ACETAMINOPHEN 500 MG TABLET PO SCH ×3 (04:03→12:50)
[2021-04-14] MEDS: IBUPROFEN 800 MG TABLET PO SCH ×3 (04:04→19:15)
[2021-04-14] MEDS: DOCUSATE SODIUM 100 MG CAPSULE PO SCH (09:10)
[2021-04-15] MEDS: IBUPROFEN 800 MG TABLET PO SCH (00:25)
[2021-04-15] MEDS: DOCUSATE SODIUM 100 MG CAPSULE PO SCH (00:25)
[2021-04-15] MEDS: ACETAMINOPHEN 500 MG TABLET PO SCH (00:25)
--- NOTE | 2021-04-15 11:00 | Discharge Plan ---
Discharge Plan Problem Reviewed?: Yes Disposition: Home, Self Care Condition: Good Diet: Regular Activity Restrictions: No Restrictions Shower Restrictions: No Driving Restrictions: No Weight Bearing: Full Weight No Smoking: If you smoke, Please STOP! Call for help. Follow-up with: Yeni Norton CNM, ARNP [Provider Admit Priv/Credential] -
[2021-04-15 12:06] VITALS: BP 118/73
--- NOTE | 2021-04-15 15:57 | DISCHARGE SUMMARY ---
Discharge Summary Condition at Discharge: Good Discharge Disposition: 01 Home, Self Care - HOSPITAL COURSE Hospital Course: Date of Admission: 04/13/2021 Date of Discharge 04/15/2021 Diagnosis on Discharge: 1. 25yo @ 39.2wks gestation by LMP c/w 18wk U/S 2. Polyhydramnios 3. Impaired 1hr gtt - 3 hr GTT declined 4. Obesity 5. Hx pp hemorrhage 6. GBS neg 7. FHR Category I Diagnosis on Discharge: 1. 25yo PPD #1 s/p TSVD viable male 2. 3. Normal recovery Brief history: She is a patient of [facility] who presented on 04/13/2021 for induction of labor secondary to polyhydramnios and impaired 1 hour GTT with declined 3 hour GTT and no blood glucose monitoring. She was given 1 dose of 50mcg BC misoprostol for pre-induction cervical ripening. AROM occurred for labor augmentation and was noted to be light meconium stained. She was augmented with pitocin with a maximum infusion rate of 6mU/mL. She progressed to deliver a viable male on 04/14/2021 @ 0133. Apgars were 8/9 at 1 and 5 minutes respectively. EBL 200mL. Perineum intact. She has been doing well in her course. She is ambulating and tolerating a regular diet. She is urinating without difficulty and her lochia is normal. Her pain is well controlled with oral medications. She reports she is feeling great and desires to be discharged home now. She is and formula supplementing which she did with her daughter and intends to do with this baby. She intends to f/u with myself at [facility] in 1 week for routine pp visit or sooner PRN. She was encouraged to continue taking ibuprofen and tylenol OTC as needed for pain management. She has been given precautions to call if she has any worsening fevers, chills, abdominal pain, increased vaginal bleeding or foul smelling vaginal lochia. She verbalized understanding and agrees to above plan. She denies further questions or concerns at this time. - ALLERGIES Allergies/Adverse Reactions: Allergies Allergy/AdvReac Type Severity Reaction Status Date / Time azithromycin Allergy Rash Verified 04/13/21 09:56 naproxen Allergy Unknown Verified 04/13/21 09:56 - LABS Result Diagrams: 04/13/21 08:35
== END 2021-04-15 11:18 | disposition home or self-care (01) | DRG 807 ==
LOC: WFO 07:30 → FBP 07:34 → WFO 08:17 → FBP 08:18
PROVIDERS: ADMIT Nurse Practitioner Obstetrics & Gynecology; ATTEND Nurse Practitioner Obstetrics & Gynecology
PROC: 10907ZC Drainage of Amniotic Fluid, Therapeutic from Products of Conception, Via Natural or Artificial Opening (ICD-10-PCS; principal; 2021-04-13)
PROC: 10E0XZZ Delivery of Products of Conception, External Approach (ICD-10-PCS; 2021-04-14)
DX: O40.3XX0 Polyhydramnios, third trimester, not applicable or unspecified (principal); Z37.0 Single live birth; O77.0 Labor and delivery complicated by meconium in amniotic fluid; O99.214 Obesity complicating childbirth; O69.81X0 Labor and delivery complicated by cord around neck, without compression, not applicable or unspecified; Z3A.39 39 weeks gestation of pregnancy; O99.810 Abnormal glucose complicating pregnancy; Z87.59 Personal history of other complications of pregnancy, childbirth and the puerperium; E66.01 Morbid (severe) obesity due to excess calories
CPT/HCPCS: 36415; 85025; 86850; 86900; 86901; 86920; A9270; J2210; J7120